=== PATIENT | male | born 1975 | race African-American/Black ===

== ENCOUNTER 2019-06-05 10:30 | Emergency (ER) | payer OTHER ==
[~2019-06-05] VITALS: Ht 175.3 cm; Wt 105.7 kg
[2019-06-05] MEDS ORDERED: LIDOCAINE PAIN1 EACH TRANSDERM (12:21)
[2019-06-05] MEDS ORDERED: NORCO 5-325 TA1 EAC1 PO (12:21)
[2019-06-05 12:27] VITALS: BP 177/80
== END 2019-06-05 12:29 | disposition home or self-care (01) ==
LOC: ER 10:30
DX: S76.812A Strain of other specified muscles, fascia and tendons at thigh level, left thigh, initial encounter (principal); M25.552 Pain in left hip; F17.210 Nicotine dependence, cigarettes, uncomplicated; X50.9XXA Other and unspecified overexertion or strenuous movements or postures, initial encounter; Y93.89 Activity, other specified; Y92.89 Other specified places as the place of occurrence of the external cause; Y99.0 Civilian activity done for income or pay